=== PATIENT | female | born 1980 | race Two or more races ===

== ENCOUNTER 2020-02-16 10:22 | Inpatient (IN) | payer MEDICAID, OTHER ==
[~2020-02-16] VITALS: Ht 172.7 cm; Wt 144.9 kg
[2020-02-16] VITALS (22 sets, daily range): BP systolic 69–192; BP diastolic 41–120
[2020-02-16] MEDS ORDERED: ONDANSETRON HCL 4 MG/2 ML VIAL ONE (10:33)
[2020-02-16] MEDS ORDERED: MIDAZOLAM HCL 5 MG/ML-1ML VIAL ONE (10:36)
[2020-02-16] MEDS ORDERED: MIDAZOLAM DRIP 50 mg/50mL 50 ML IV ONE ×2 (10:36→10:54)
[2020-02-16] MEDS ORDERED: EPINEPHrine HCL 1 MG/10 ML SYRG ONE ×2 (10:43→10:44)
[2020-02-16] MEDS ORDERED: NOREPINEPHRINE 8 MG/250ML KIT 250 ML IV ONE (10:50)
[2020-02-16] MEDS ORDERED: DEXTROSE 50% SYRINGE 100 ML IV ONE (10:52)
[2020-02-16] MEDS: NOREPINEPHRINE 8 MG/250ML KIT 250 ML IV SCH ×5 (11:25→22:12)
[2020-02-16] MEDS: MIDAZOLAM DRIP 50 mg/50mL 50 ML IV SCH ×2 (11:26→22:21)
[2020-02-16] MEDS ORDERED: DEXTROSE (50%) 50ML SYRG IV ONE ×4 (11:30→17:45)
[2020-02-16 12:00] LABS: INR 2.92 (0.9-1.15)
[2020-02-16 12:05] LABS: Partial Thromboplastin Time 71.1 sec (23.0-31.2)
[2020-02-16 12:11] LABS: Lactic Acid w/Reflex 11.9 mmol/L (0.4-2.0)
[2020-02-16] MEDS ORDERED: SODIUM BICARBONATE 8.4 % INJ 50ML VIAL IV ONE ×5 (12:15→18:15)
[2020-02-16 12:52] LABS: Basophils # (auto) 0 10 ^3/uL (0-0.2); Eosinophils # (auto) 0 10 ^3/uL (0-0.8); Lymphocytes # (auto) 1.5 10 ^3/uL (0.4-5.4); Monocytes # (auto) 0.3 10 ^3/uL (0-1.3); Neutrophils % (auto) 75.5 % (37.0-80.0); White Blood Cell 7.6 10^3/uL (4.4-10.8)
[2020-02-16 12:53] LABS: Basophils % (auto) 0.4 % (0.0-2.0); Eosinophils % (auto) 0.4 % (0.0-7.0); Hematocrit 43.5 % (36.0-46.0); Lymphocytes % (auto) 19.7 % (10.0-50.0); Mean Corpuscular Hemoglobin 31.6 pg (28.0-32.0); Mean Corpuscular Hgb Conc. 29.8 g/dL (32.0-36.0); Neutrophils # (auto) 5.7 10 ^3/uL (1.6-8.6); Nucleated Red Blood Cells % 0.1 %; Platelet Count (auto) 421 10^3/uL (140-450); Red Blood Cells 4.11 10^6/uL (4.0-5.20); Red Cell Distribution Width 15.5 % (11.8-14.3)
[2020-02-16] MEDS ORDERED: cefTRIAXone 1GM/50ML D5W 50 ML IV ONE (13:00)
[2020-02-16] MEDS ORDERED: SODIUM CHLORIDE 0.9% 2,700 ML IV ONE (13:00)
[2020-02-16] MEDS ORDERED: PIPERACILLIN-TAZOB 3.375GM 100 ML IV ONE (13:00)
[2020-02-16 13:05] LABS: Albumin 2.2 g/dL (3.4-5.0); Calcium 9.9 mg/dL (8.5-10.1)
[2020-02-16 13:11] LABS: BUN/Creatinine Ratio 11.5; Bilirubin, Total 0.7 mg/dL (0.2-1.0); Total Protein 6.8 g/dL (6.4-8.2)
[2020-02-16 13:25] LABS: Potassium 7.9 mmol/L (3.5-5.1)
[2020-02-16 14:16] LABS: Basophils # (auto) 0 10 ^3/uL (0-0.2); Eosinophils # (auto) 0 10 ^3/uL (0-0.8); Eosinophils % (auto) 0.4 % (0.0-7.0); Hemoglobin 12.7 g/dL (12.2-16.2); Lymphocytes # (auto) 1.2 10 ^3/uL (0.4-5.4); Nucleated Red Blood Cells % 0.1 %; Red Cell Distribution Width 15.1 % (11.8-14.3)
[2020-02-16 14:18] LABS: Basophils % (auto) 0.3 % (0.0-2.0); Hematocrit 41.2 % (36.0-46.0); Lymphocytes % (auto) 17.3 % (10.0-50.0); Mean Corpuscular Hgb Conc. 30.8 g/dL (32.0-36.0); Monocytes # (auto) 0.4 10 ^3/uL (0-1.3); Monocytes % (auto) 4.9 % (0.0-12.0); Neutrophils # (auto) 5.5 10 ^3/uL (1.6-8.6); Neutrophils % (auto) 77.1 % (37.0-80.0); Platelet Count (auto) 463 10^3/uL (140-450); Red Blood Cells 3.96 10^6/uL (4.0-5.20); White Blood Cell 7.2 10^3/uL (4.4-10.8)
[2020-02-16 14:39] LABS: INR 1.63 (0.9-1.15)
[2020-02-16 14:43] LABS: Albumin 2.3 g/dL (3.4-5.0); Calcium 9.7 mg/dL (8.5-10.1); Potassium 3.2 mmol/L (3.5-5.1)
[2020-02-16 14:47] LABS: BUN/Creatinine Ratio 10.7; Bilirubin, Total 0.7 mg/dL (0.2-1.0); Total Protein 6.5 g/dL (6.4-8.2)
[2020-02-16] MEDS ORDERED: D5W/SOD CHLO 0.9% 1,000 ML IV ONE (15:00)
[2020-02-16] MEDS ORDERED: metroNIDAZOLE 500MG/100ML 100 ML IV ONE ×2 (16:15→19:45)
[2020-02-16] MEDS: PHENYLEPHRINE IV 250 ML IV SCH (17:54)
[2020-02-16] MEDS ORDERED: CALCIUM CHLOR(10%) 100MG/ML 10ML SYRINGE IV ONE (17:58)
[2020-02-16] MEDS ORDERED: ALBUMIN 5% 0 ML IV ONE (18:01)
[2020-02-16] MEDS ORDERED: SODIUM CHLORIDE 0.9% 1,000 ML IV ONE ×2 (18:15→21:45)
[2020-02-16] MEDS ORDERED: fentaNYL CITRATE 100 MCG/2 ML VL IV ONE (18:33)
[2020-02-16] MEDS ORDERED: MIDAZOLAM HCL 1MG/1ML-2 ML VIAL ONE ×2 (18:49→18:55)
[2020-02-16] MEDS ORDERED: D5W/SOD CHL 0.45%/KCL 40MEQ 1,000 ML IV ONE (19:45)
[2020-02-16] MEDS ORDERED: HYDROmorphone HCL 2 MG/ML VL IV ONE (19:45)
[2020-02-16 20:44] LABS: Urine Bacteria NONE SEEN /hpf (None Seen); Urine Blood 3+ /uL (Negative); Urine Hyaline Cast MOD /lpf (0 - 2); Urine Mucus FEW (None Seen); Urine Specific Gravity 1.013 (1.001-1.035); Urine WBC 15 /hpf (0 - 5)
[2020-02-16 20:52] LABS: Alcohol, Urine < 3.0 mg/dL (0-10); Amphetamine Screen, Urine NEGATIVE (NEGATIVE); Barbiturate Scree,Urine NEGATIVE (NEGATIVE); Benzodiazephine Screen, Urine POSITIVE (NEGATIVE); Cannabinoid Screen, Urine NEGATIVE (NEGATIVE); Cocaine Screen, Urine NEGATIVE (NEGATIVE); Opiate Scree,Urine NEGATIVE (NEGATIVE); Phencyclidine Screen, Urine NEGATIVE (NEGATIVE)
[2020-02-16] MEDS: PANTOPRAZOLE 40mg/50ML NS AE 50 ML IV SCH (21:08)
[2020-02-16] MEDS: PIPERACILLIN-TAZOB 3.375GM 100 ML IV SCH (22:19)
[2020-02-16] MEDS ORDERED: ZONI100C43 PO (22:32)
[2020-02-16] MEDS ORDERED: OXYC325T14 PO (22:32)
[2020-02-16] MEDS ORDERED: NAP500T PO (22:32)
[2020-02-16] MEDS ORDERED: HYDR-4188 PO (22:32)
[2020-02-16] MEDS ORDERED: PREG100C PO (22:32)
[2020-02-16] MEDS ORDERED: META-167 PO (22:32)
[2020-02-16] MEDS ORDERED: NITROGLYCERIN 2% OINT 1GM PKG TD ONE ×2 (23:00→23:15)
[2020-02-16 23:35] LABS: Lactic Acid w/Reflex 7.1 mmol/L (0.4-2.0)
[2020-02-17] VITALS (98 sets, daily range): BP systolic 87–158; BP diastolic 24–78
[2020-02-17] MEDS ORDERED: ACCU-CHEK COMFORT CURVE STRIP VI SCH
[2020-02-17] MEDS: DEXTROSE (50%) 50ML SYRG IV PRN ×4 (00:18→14:58)
[2020-02-17 00:57] LABS: Basophils # (auto) 0 10 ^3/uL (0-0.2); Basophils % (auto) 0.3 % (0.0-2.0); Eosinophils # (auto) 0 10 ^3/uL (0-0.8); Eosinophils % (auto) 0.2 % (0.0-7.0); Hematocrit 38.7 % (36.0-46.0); Hemoglobin 12.6 g/dL (12.2-16.2); Lymphocytes # (auto) 0.3 10 ^3/uL (0.4-5.4); Lymphocytes % (auto) 7.6 % (10.0-50.0); Mean Corpuscular Hemoglobin 31.7 pg (28.0-32.0); Mean Corpuscular Hgb Conc. 32.4 g/dL (32.0-36.0); Mean Corpuscular Volume 97.8 fL (80.0-100.0); Monocytes # (auto) 0.2 10 ^3/uL (0-1.3); Monocytes % (auto) 4.6 % (0.0-12.0); Neutrophils # (auto) 3.1 10 ^3/uL (1.6-8.6); Neutrophils % (auto) 87.3 % (37.0-80.0); Nucleated Red Blood Cells % 0.3 %; Platelet Count (auto) 315 10^3/uL (140-450); Red Blood Cells 3.96 10^6/uL (4.0-5.20); Red Cell Distribution Width 14.1 % (11.8-14.3); White Blood Cell 3.6 10^3/uL (4.4-10.8)
[2020-02-17 01:13] LABS: Calcium 7.5 mg/dL (8.5-10.1); INR 1.67 (0.9-1.15); Partial Thromboplastin Time 31.7 sec (23.0-31.2)
[2020-02-17] MEDS: PANTOPRAZOLE 40mg/50ML NS AE 50 ML IV SCH ×5 (01:16→23:34)
[2020-02-17 01:19] LABS: BUN/Creatinine Ratio 10.7
[2020-02-17] MEDS: PHENYLEPHRINE IV 250 ML IV SCH ×3 (01:50→18:30)
[2020-02-17] MEDS: ACCU-CHEK COMFORT CURVE STRIP VI SCH ×11 (02:10→22:00)
[2020-02-17] MEDS: NOREPINEPHRINE 8 MG/250ML KIT 250 ML IV SCH ×3 (03:25→18:44)
[2020-02-17] MEDS: MIDAZOLAM DRIP 50 mg/50mL 50 ML IV SCH ×4 (03:42→20:18)
[2020-02-17] MEDS ORDERED: D5W/SOD CHL 0.45%/KCL 40MEQ 1,000 ML IV SCH (04:00)
[2020-02-17] MEDS: PIPERACILLIN-TAZOB 3.375GM 100 ML IV SCH ×3 (05:54→22:08)
[2020-02-17 07:11] LABS: Albumin 1.8 g/dL (3.4-5.0); Lactic Acid w/Reflex 7.6 mmol/L (0.4-2.0); Magnesium 1.4 mg/dL (1.6-2.6); Potassium 3.3 mmol/L (3.5-5.1)
[2020-02-17 07:13] LABS: Basophils # (auto) 0 10 ^3/uL (0-0.2); Basophils % (auto) 0.2 % (0.0-2.0); Eosinophils # (auto) 0 10 ^3/uL (0-0.8); Eosinophils % (auto) 0.4 % (0.0-7.0); Hematocrit 35.6 % (36.0-46.0); Hemoglobin 11.6 g/dL (12.2-16.2); Lymphocytes # (auto) 0.3 10 ^3/uL (0.4-5.4); Lymphocytes % (auto) 6.5 % (10.0-50.0); Mean Corpuscular Hgb Conc. 32.7 g/dL (32.0-36.0); Mean Corpuscular Volume 97.8 fL (80.0-100.0); Monocytes # (auto) 0.2 10 ^3/uL (0-1.3); Monocytes % (auto) 3.5 % (0.0-12.0); Neutrophils # (auto) 4.5 10 ^3/uL (1.6-8.6); Neutrophils % (auto) 89.4 % (37.0-80.0); Nucleated Red Blood Cells % 0.2 %; Platelet Count (auto) 268 10^3/uL (140-450); Red Blood Cells 3.64 10^6/uL (4.0-5.20); Red Cell Distribution Width 14.1 % (11.8-14.3)
[2020-02-17 07:20] LABS: BUN/Creatinine Ratio 10.2; Phosphorus 1.8 mg/dL (2.5-4.90); Total Protein 5.1 g/dL (6.4-8.2)
[2020-02-17] MEDS ORDERED: CALCIUM CHLOR(10%) 100MG/ML 10ML SYRINGE IV ONE (08:52)
[2020-02-17] MEDS ORDERED: EPINEPHrine HCL 1 MG/10 ML SYRG IV ONE (08:52)
[2020-02-17] MEDS ORDERED: SODIUM BICARBONATE 8.4% INJ 50ML SYRINGE IV ONE (08:52)
[2020-02-17] MEDS ORDERED: ALBUMIN 25% 100 ML IV ONE (12:00)
[2020-02-17] MEDS ORDERED: POTASSIUM CHL 20MEQ/100ML 100 ML IV PRN (12:00)
[2020-02-17] MEDS ORDERED: ALBUMIN 25% 100 ML IV SCH (12:15)
[2020-02-17] MEDS ORDERED: POTASSIUM PHOSPHATE 44 MEQ in D5W 5% 250 ML IV ONE (12:15)
[2020-02-17] MEDS: MAGNESIUM SULFATE 1GM/100ML 100 ML IV SCH ×2 (13:25→14:43)
[2020-02-17] MEDS: POTASSIUM CHL 20MEQ/100ML 100 ML IV SCH ×2 (13:38→15:18)
[2020-02-17] MEDS: SODIUM BICARBONATE 50ML VIAL 100 ML in D5W 5% 1,000 ML IV SCH ×2 (13:49→19:41)
[2020-02-17] MEDS ORDERED: TPN PER PHARMACY 0 ML IV SCH (14:00)
[2020-02-17] MEDS ORDERED: VANCOMYCIN PER PHARMACY 0 MG IV SCH (14:00)
[2020-02-17] MEDS: fentaNYL Drip 2500mCg/250mlNS 250 ML IV SCH (14:52)
[2020-02-17] MEDS ORDERED: FUROSEMIDE 100 MG/10ML VIAL IV ONE (15:45)
[2020-02-17] MEDS ORDERED: SODIUM CHLORIDE 0.9% 2,000 ML IV ONE (16:15)
[2020-02-17] MEDS ORDERED: VANCOMYCIN 1GM/250ML 250 ML IV ONE (18:00)
[2020-02-17] MEDS ORDERED: AMINO ACID INFUSION IN D5W 2,000 ML IV NR (20:00)
[2020-02-17] MEDS: ALBUMIN 25% 100 ML IV SCH (20:31)
[2020-02-17 21:13] LABS: Urine Bacteria FEW /hpf (None Seen); Urine Blood 3+ /uL (Negative); Urine WBC 12 /hpf (0 - 5)
[2020-02-18] VITALS (104 sets, daily range): BP systolic 110–142; BP diastolic 39–94
[2020-02-18] MEDS: NOREPINEPHRINE 8 MG/250ML KIT 250 ML IV SCH ×2 (01:36→19:59)
[2020-02-18] MEDS: MIDAZOLAM DRIP 50 mg/50mL 50 ML IV SCH (01:37)
[2020-02-18] MEDS: ACCU-CHEK COMFORT CURVE STRIP VI SCH ×12 (02:06→22:16)
[2020-02-18] MEDS: PHENYLEPHRINE IV 250 ML IV SCH ×3 (02:50→19:30)
[2020-02-18 02:53] LABS: Protein, Urine 139.5 mg/dL (0.0-11.9)
[2020-02-18] MEDS: SODIUM BICARBONATE 50ML VIAL 100 ML in D5W 5% 1,000 ML IV SCH ×3 (03:29→13:45)
[2020-02-18] MEDS: PANTOPRAZOLE 40mg/50ML NS AE 50 ML IV SCH ×5 (03:40→21:38)
[2020-02-18] MEDS: ALBUMIN 25% 100 ML IV SCH ×2 (04:09→13:13)
[2020-02-18 04:16] LABS: Potassium 4.6 mmol/L (3.5-5.1)
[2020-02-18 04:31] LABS: Albumin 2.2 g/dL (3.4-5.0); BUN/Creatinine Ratio 9.6; Bilirubin, Total 2.9 mg/dL (0.2-1.0); Calcium 6.2 mg/dL (8.5-10.1); Magnesium 1.7 mg/dL (1.6-2.6); Phosphorus 3.8 mg/dL (2.5-4.90); Pre Albumin 8.2 mg/dL (20.0-40.0); Total Protein 4.9 g/dL (6.4-8.2)
[2020-02-18 04:32] LABS: Basophils # (auto) 0 10 ^3/uL (0-0.2); Basophils % (auto) 0.3 % (0.0-2.0); Eosinophils # (auto) 0.1 10 ^3/uL (0-0.8); Eosinophils % (auto) 2.5 % (0.0-7.0); Hematocrit 27.7 % (36.0-46.0); Hemoglobin 9.5 g/dL (12.2-16.2); Lymphocytes # (auto) 0.5 10 ^3/uL (0.4-5.4); Lymphocytes % (auto) 8.1 % (10.0-50.0); Mean Corpuscular Hemoglobin 32.9 pg (28.0-32.0); Mean Corpuscular Hgb Conc. 34.2 g/dL (32.0-36.0); Mean Corpuscular Volume 96.3 fL (80.0-100.0); Monocytes # (auto) 0.1 10 ^3/uL (0-1.3); Monocytes % (auto) 1.6 % (0.0-12.0); Neutrophils # (auto) 5.1 10 ^3/uL (1.6-8.6); Neutrophils % (auto) 87.5 % (37.0-80.0); Nucleated Red Blood Cells % 0.6 %; Platelet Count (auto) 164 10^3/uL (140-450); Red Blood Cells 2.87 10^6/uL (4.0-5.20); Red Cell Distribution Width 14.3 % (11.8-14.3); White Blood Cell 5.8 10^3/uL (4.4-10.8)
[2020-02-18 04:53] LABS: Lactic Acid w/Reflex 4.2 mmol/L (0.4-2.0)
[2020-02-18] MEDS: PIPERACILLIN-TAZOB 3.375GM 100 ML IV SCH ×3 (05:30→22:19)
[2020-02-18] MEDS ORDERED: CALCIUM GLUC 4.65meq/50ml D5AE 50 ML IV ONE (10:00)
[2020-02-18] MEDS ORDERED: VANCOMYCIN 500 MG in D5W 5% 100 ML IV ONE (11:00)
[2020-02-18] MEDS: FUROSEMIDE 100 MG/10ML VIAL IV SCH ×3 (14:00→22:19)
[2020-02-18] MEDS: fentaNYL Drip 2500mCg/250mlNS 250 ML IV SCH (14:57)
[2020-02-18 16:56] LABS: Hepatitis A Ab IgM Negative; Hepatitis B Core IgM Negative; Hepatitis B Surface Antigen Negative (Negative); Hepatitis C Antibody Negative (Negative)
[2020-02-18] MEDS ORDERED: TPN PER PHARMACY IV NR ×6 (20:00)
[2020-02-18] MEDS: SODIUM CHLOR 0.9% PF (SALINE LOCK) 10ML VIAL/SYR IV SCH (22:20)
[2020-02-19] VITALS (108 sets, daily range): BP systolic 91–129; BP diastolic 35–69
[2020-02-19] MEDS: ACCU-CHEK COMFORT CURVE STRIP VI SCH ×10 (00:04→19:44)
[2020-02-19] MEDS: PANTOPRAZOLE 40mg/50ML NS AE 50 ML IV SCH ×5 (02:47→21:54)
[2020-02-19] MEDS: PHENYLEPHRINE IV 250 ML IV SCH ×3 (03:35→19:44)
[2020-02-19 04:06] LABS: Hematocrit 26.1 % (36.0-46.0); Hemoglobin 8.9 g/dL (12.2-16.2); Mean Corpuscular Hemoglobin 32.6 pg (28.0-32.0); Mean Corpuscular Hgb Conc. 33.9 g/dL (32.0-36.0); Mean Corpuscular Volume 96.2 fL (80.0-100.0); Platelet Count (auto) 96 10^3/uL (140-450); Red Blood Cells 2.72 10^6/uL (4.0-5.20); Red Cell Distribution Width 14.9 % (11.8-14.3)
[2020-02-19 04:08] LABS: Potassium 4.3 mmol/L (3.5-5.1)
[2020-02-19 04:15] LABS: Albumin 2.4 g/dL (3.4-5.0); BUN/Creatinine Ratio 9.2; Magnesium 1.4 mg/dL (1.6-2.6); Phosphorus 2.5 mg/dL (2.5-4.90); Total Protein 5.1 g/dL (6.4-8.2)
[2020-02-19 04:19] LABS: Calcium 5.9 mg/dL (8.5-10.1)
[2020-02-19 04:24] LABS: Basophils % (manual) 0 (0.0-2.0); Blast Cells 0; Metamyelocytes % 0; Promyelocytes % 0; Reactive Lymphocytes 0
[2020-02-19] MEDS: PIPERACILLIN-TAZOB 3.375GM 100 ML IV SCH ×3 (05:35→21:51)
[2020-02-19] MEDS: FUROSEMIDE 100 MG/10ML VIAL IV SCH ×3 (05:35→21:51)
[2020-02-19 05:38] LABS: Band Neutrophils % (manual) 14; Eosinophils % (manual) 7 (0-7); Lymphocytes % (manual) 15 (10.0-50.0); Monocytes % (manual) 11 (0-12); Myelocytes % 1
[2020-02-19] MEDS: SODIUM BICARBONATE 50ML VIAL 100 ML in D5W 5% 1,000 ML IV SCH (10:04)
[2020-02-19] MEDS: SODIUM CHLOR 0.9% PF (SALINE LOCK) 10ML VIAL/SYR IV SCH ×2 (10:04→21:53)
[2020-02-19] MEDS: MAGNESIUM SULFATE 1GM/100ML 100 ML IV SCH ×2 (10:06→11:42)
[2020-02-19] MEDS ORDERED: VANCOMYCIN 500 MG in D5W 5% 100 ML IV ONE (11:00)
[2020-02-19] MEDS: fentaNYL Drip 2500mCg/250mlNS 250 ML IV SCH (14:00)
[2020-02-19] MEDS: CALCIUM GLUC 4.65meq/50ml D5AE 50 ML IV SCH ×2 (14:54→15:00)
[2020-02-19] MEDS: MIDAZOLAM DRIP 50 mg/50mL 50 ML IV SCH (19:23)
[2020-02-19 19:55] LABS: Anion Gap 14 (5-15); BUN/Creatinine Ratio 8.6; Blood Urea Nitrogen 38 mg/dL (7-18); Calcium 6.4 mg/dL (8.5-10.1); Carbon Dioxide 20 mmol/L (21-32); Chloride 100 mmol/L (98-107); GFR African American 14 mL/min; GFR Non-African American 12 mL/min; Glucose 102 mg/dL (74-106); Potassium 3.7 mmol/L (3.5-5.1); Sodium 134 mmol/L (136-145)
[2020-02-19] MEDS: NOREPINEPHRINE 8 MG/250ML KIT 250 ML IV SCH (19:56)
[2020-02-19] MEDS ORDERED: TPN PER PHARMACY IV NR ×7 (20:00)
[2020-02-19] MEDS ORDERED: CALCIUM GLUC 4.65meq/50ml D5AE 50 ML IV ONE (21:30)
[2020-02-19 23:03] LABS: Hematocrit 25.6 % (36.0-46.0); Hemoglobin 8.6 g/dL (12.2-16.2); Mean Corpuscular Hemoglobin 32.1 pg (28.0-32.0); Mean Corpuscular Hgb Conc. 33.7 g/dL (32.0-36.0); Mean Corpuscular Volume 95.1 fL (80.0-100.0); Platelet Count (auto) 82 10^3/uL (140-450); Red Blood Cells 2.69 10^6/uL (4.0-5.20); Red Cell Distribution Width 14.8 % (11.8-14.3); White Blood Cell 13.7 10^3/uL (4.4-10.8)
[2020-02-19 23:06] LABS: Basophils % (manual) 0 (0.0-2.0); Blast Cells 0; Myelocytes % 0; Promyelocytes % 0; Reactive Lymphocytes 0
[2020-02-19 23:21] LABS: Albumin 1.8 g/dL (3.4-5.0); Potassium 3.7 mmol/L (3.5-5.1)
[2020-02-19 23:23] LABS: BUN/Creatinine Ratio 8.7
[2020-02-19 23:25] LABS: Bilirubin, Total 3.4 mg/dL (0.2-1.0)
[2020-02-19 23:29] LABS: Band Neutrophils % (manual) 24; Eosinophils % (manual) 4 (0-7); Lymphocytes % (manual) 4 (10.0-50.0); Metamyelocytes % 3; Monocytes % (manual) 17 (0-12)
[2020-02-20] VITALS (102 sets, daily range): BP systolic 107–126; BP diastolic 47–63
[2020-02-20] MEDS: PANTOPRAZOLE 40mg/50ML NS AE 50 ML IV SCH ×5 (03:18→23:14)
[2020-02-20] MEDS: SODIUM BICARBONATE 50ML VIAL 100 ML in D5W 5% 1,000 ML IV SCH (03:19)
[2020-02-20 03:55] LABS: Albumin 1.9 g/dL (3.4-5.0); Calcium 6.6 mg/dL (8.5-10.1); Potassium 3.6 mmol/L (3.5-5.1)
[2020-02-20 03:58] LABS: Bilirubin, Total 3.7 mg/dL (0.2-1.0); Phosphorus 1.4 mg/dL (2.5-4.90); Total Protein 5.2 g/dL (6.4-8.2)
[2020-02-20] MEDS: PHENYLEPHRINE IV 250 ML IV SCH ×3 (04:43→19:17)
[2020-02-20] MEDS: FUROSEMIDE 100 MG/10ML VIAL IV SCH ×2 (05:23→19:29)
[2020-02-20] MEDS: PIPERACILLIN-TAZOB 3.375GM 100 ML IV SCH ×2 (05:24→13:38)
[2020-02-20] MEDS: ACCU-CHEK COMFORT CURVE STRIP VI SCH ×5 (05:24→23:12)
[2020-02-20] MEDS ORDERED: POTASSIUM PHOSPHATE 44 MEQ in D5W 5% 250 ML IV ONE (08:30)
[2020-02-20] MEDS ORDERED: CALCIUM GLUC 4.65meq/50ml D5AE 50 ML IV ONE (08:30)
[2020-02-20] MEDS: NOREPINEPHRINE 8 MG/250ML KIT 250 ML IV SCH ×2 (09:35→21:32)
[2020-02-20] MEDS: SODIUM CHLOR 0.9% PF (SALINE LOCK) 10ML VIAL/SYR IV SCH ×2 (09:43→21:32)
[2020-02-20] MEDS: InsuLIN REG 1unit/0.01ml Soln (100units/ml) SC SCH ×3 (12:00→23:12)
[2020-02-20] MEDS ORDERED: DEXTROSE (50%) 50ML SYRG IV SCH (12:00)
[2020-02-20] MEDS ORDERED: FUROSEMIDE 100 MG/10ML VIAL IV SCH (13:45)
[2020-02-20] MEDS ORDERED: ALBUMIN 25% 100 ML IV ONE (13:45)
[2020-02-20] MEDS: fentaNYL Drip 2500mCg/250mlNS 250 ML IV SCH (14:05)
[2020-02-20] MEDS: D5W/SOD CHLO 0.9% 1,000 ML IV SCH (17:50)
[2020-02-20] MEDS: MIDAZOLAM DRIP 50 mg/50mL 50 ML IV SCH (19:17)
[2020-02-20] MEDS ORDERED: TPN PER PHARMACY IV NR ×8 (20:00)
[2020-02-20] MEDS ORDERED: cefTRIAXone 1GM/50ML D5W 50 ML IV ONE (20:15)
[2020-02-20 21:40] LABS: Urine Bacteria FEW /hpf (None Seen); Urine Blood 2+ /uL (Negative); Urine Specific Gravity 1.008 (1.001-1.035); Urine WBC 2 /hpf (0 - 5)
[2020-02-20 22:20] LABS: Hemoglobin 8.6 g/dL (12.2-16.2)
[2020-02-20 22:24] LABS: Hematocrit 26.1 % (36.0-46.0); Mean Corpuscular Hemoglobin 31.7 pg (28.0-32.0); Mean Corpuscular Volume 96.3 fL (80.0-100.0); Platelet Count (auto) 47 10^3/uL (140-450); Red Blood Cells 2.71 10^6/uL (4.0-5.20); Red Cell Distribution Width 15.1 % (11.8-14.3); White Blood Cell 22.8 10^3/uL (4.4-10.8)
[2020-02-20 22:27] LABS: Basophils % (manual) 0 (0.0-2.0); Blast Cells 0; Promyelocytes % 0; Reactive Lymphocytes 0
[2020-02-20 22:44] LABS: Band Neutrophils % (manual) 6; Lymphocytes % (manual) 7 (10.0-50.0); Monocytes % (manual) 5 (0-12)
[2020-02-20 22:45] LABS: Eosinophils % (manual) 3 (0-7); Metamyelocytes % 1; Myelocytes % 1
[2020-02-21] VITALS (107 sets, daily range): BP systolic 104–129; BP diastolic 41–65
[2020-02-21] MEDS: FUROSEMIDE 100 MG/10ML VIAL IV SCH ×3 (02:17→14:38)
[2020-02-21] MEDS: PANTOPRAZOLE 40mg/50ML NS AE 50 ML IV SCH ×4 (03:43→19:58)
[2020-02-21] MEDS: D5W/SOD CHLO 0.9% 1,000 ML IV SCH ×2 (03:53→19:56)
[2020-02-21 04:08] LABS: Albumin 1.8 g/dL (3.4-5.0); Magnesium 2.2 mg/dL (1.6-2.6); Potassium 4.3 mmol/L (3.5-5.1)
[2020-02-21 04:12] LABS: BUN/Creatinine Ratio 9.3; Bilirubin, Total 4.1 mg/dL (0.2-1.0); Phosphorus 3.6 mg/dL (2.5-4.90); Total Protein 5.2 g/dL (6.4-8.2)
[2020-02-21] MEDS: PHENYLEPHRINE IV 250 ML IV SCH ×3 (05:00→22:30)
[2020-02-21] MEDS: ACCU-CHEK COMFORT CURVE STRIP VI SCH ×4 (05:04→23:40)
[2020-02-21] MEDS: InsuLIN REG 1unit/0.01ml Soln (100units/ml) SC SCH ×4 (05:04→23:40)
[2020-02-21] MEDS ORDERED: SODIUM BICARBONATE 8.4 % INJ 50ML VIAL IV ONE (08:00)
[2020-02-21] MEDS: SODIUM CHLOR 0.9% PF (SALINE LOCK) 10ML VIAL/SYR IV SCH ×2 (08:30→21:50)
[2020-02-21 09:46] LABS: Urine Bacteria FEW /hpf (None Seen); Urine Blood 2+ /uL (Negative); Urine Specific Gravity 1.011 (1.001-1.035); Urine WBC 12 /hpf (0 - 5)
[2020-02-21] MEDS: NOREPINEPHRINE 8 MG/250ML KIT 250 ML IV SCH (12:15)
[2020-02-21] MEDS ORDERED: CEFEPIME 0.5 GM in SODIUM CHL 0.9% 50 ML IV SCH ×2 (13:15→13:25)
[2020-02-21 13:58] LABS: Red Cell Distribution Width 15.3 % (11.8-14.3)
[2020-02-21 13:59] LABS: Hematocrit 25.2 % (36.0-46.0); Hemoglobin 8.2 g/dL (12.2-16.2); Mean Corpuscular Hemoglobin 30.7 pg (28.0-32.0); Mean Corpuscular Hgb Conc. 32.3 g/dL (32.0-36.0); Platelet Count (auto) 44 10^3/uL (140-450); Red Blood Cells 2.66 10^6/uL (4.0-5.20); White Blood Cell 27.6 10^3/uL (4.4-10.8)
[2020-02-21] MEDS: fentaNYL Drip 2500mCg/250mlNS 250 ML IV SCH ×2 (14:00→22:41)
[2020-02-21] MEDS ORDERED: CEFEPIME 1 GM in SODIUM CHL 0.9% 50 ML IV SCH ×2 (14:00→14:01)
[2020-02-21 14:14] LABS: Albumin 1.7 g/dL (3.4-5.0); Calcium 7.1 mg/dL (8.5-10.1); Potassium 3.9 mmol/L (3.5-5.1)
[2020-02-21 14:17] LABS: BUN/Creatinine Ratio 9.1; Bilirubin, Total 3.8 mg/dL (0.2-1.0)
[2020-02-21 14:31] LABS: Basophils % (manual) 0 (0.0-2.0); Blast Cells 0; Eosinophils % (manual) 0 (0-7); Promyelocytes % 0; Reactive Lymphocytes 0
[2020-02-21] MEDS: CEFEPIME 1 GM in SODIUM CHL 0.9% 50 ML IV SCH (14:38)
[2020-02-21 17:32] LABS: Band Neutrophils % (manual) 6; Lymphocytes % (manual) 6 (10.0-50.0); Metamyelocytes % 1; Monocytes % (manual) 5 (0-12); Myelocytes % 1
[2020-02-21] MEDS: ALBUTEROL SULF 2.5 MG/0.5ML(0.5%) NEB SOLN NEB PRN ×2 (18:56→22:39)
[2020-02-21] MEDS: FUROSEMIDE INJECTION 100 MG in SODIUM CHL 0.9% 100 ML IV SCH ×3 (19:35→22:39)
[2020-02-21] MEDS: MIDAZOLAM DRIP 50 mg/50mL 50 ML IV SCH (19:45)
[2020-02-21] MEDS ORDERED: TPN PER PHARMACY IV NR ×8 (20:00)
[2020-02-21] MEDS ORDERED: cefTRIAXone 1GM/50ML D5W 50 ML IV SCH (21:00)
[2020-02-21] MEDS: metroNIDAZOLE 500MG/100ML 100 ML IV SCH (21:50)
[2020-02-22] VITALS (99 sets, daily range): BP systolic 99–155; BP diastolic 38–70
[2020-02-22] MEDS: NOREPINEPHRINE 8 MG/250ML KIT 250 ML IV SCH ×2 (01:35→14:55)
[2020-02-22] MEDS: PANTOPRAZOLE 40mg/50ML NS AE 50 ML IV SCH ×5 (01:42→21:29)
[2020-02-22] MEDS: FUROSEMIDE INJECTION 100 MG in SODIUM CHL 0.9% 100 ML IV SCH ×2 (02:50→05:51)
[2020-02-22] MEDS: metroNIDAZOLE 500MG/100ML 100 ML IV SCH ×3 (05:51→23:03)
[2020-02-22] MEDS: InsuLIN REG 1unit/0.01ml Soln (100units/ml) SC SCH ×3 (06:00→18:00)
[2020-02-22] MEDS: PHENYLEPHRINE IV 250 ML IV SCH ×3 (06:04→23:28)
[2020-02-22] MEDS: ACCU-CHEK COMFORT CURVE STRIP VI SCH ×3 (06:04→18:48)
[2020-02-22 06:21] LABS: Mean Corpuscular Hgb Conc. 32.3 g/dL (32.0-36.0)
[2020-02-22 06:25] LABS: Hematocrit 24.3 % (36.0-46.0); Hemoglobin 7.8 g/dL (12.2-16.2); Mean Corpuscular Volume 96.1 fL (80.0-100.0); Platelet Count (auto) 51 10^3/uL (140-450); Red Blood Cells 2.52 10^6/uL (4.0-5.20); Red Cell Distribution Width 15.8 % (11.8-14.3)
[2020-02-22 06:37] LABS: Potassium 4.1 mmol/L (3.5-5.1)
[2020-02-22 06:56] LABS: Albumin 1.6 g/dL (3.4-5.0); BUN/Creatinine Ratio 9.4; Calcium 7.4 mg/dL (8.5-10.1); Magnesium 2.5 mg/dL (1.6-2.6); Phosphorus 4.5 mg/dL (2.5-4.90)
[2020-02-22 06:57] LABS: Basophils % (manual) 0 (0.0-2.0); Blast Cells 0; Eosinophils % (manual) 0 (0-7); Monocytes % (manual) 0 (0-12); Promyelocytes % 0; Reactive Lymphocytes 0
[2020-02-22] MEDS ORDERED: BUMETANIDE 2.5mg/10ml (0.25 mg/ml) INJ IV ONE (08:30)
[2020-02-22 08:46] LABS: Band Neutrophils % (manual) 31; Lymphocytes % (manual) 3 (10.0-50.0); Metamyelocytes % 3; Myelocytes % 1
[2020-02-22] MEDS: SODIUM CHLOR 0.9% PF (SALINE LOCK) 10ML VIAL/SYR IV SCH ×2 (10:00→21:29)
[2020-02-22] MEDS ORDERED: VANCOMYCIN 500 MG in D5W 5% 100 ML IV ONE (11:00)
[2020-02-22] MEDS: CEFEPIME 1 GM in SODIUM CHL 0.9% 50 ML IV SCH (13:09)
[2020-02-22] MEDS: MIDAZOLAM DRIP 50 mg/50mL 50 ML IV SCH (19:45)
[2020-02-22] MEDS ORDERED: TPN PER PHARMACY IV NR ×7 (20:00)
[2020-02-22] MEDS ORDERED: CEFEPIME 1 GM in NS 0.9% 50 ML IV ONE (20:00)
[2020-02-22] MEDS: ALBUTEROL SULF 2.5 MG/0.5ML(0.5%) NEB SOLN NEB PRN (20:33)
[2020-02-22] MEDS: BUMETANIDE INJECTION 25 MG in GIVE UN-DILUTED 0 ML IV SCH (20:59)
[2020-02-23] VITALS (99 sets, daily range): BP systolic 120–151; BP diastolic 54–76
[2020-02-23] MEDS: ALBUTEROL SULF 2.5 MG/0.5ML(0.5%) NEB SOLN NEB PRN ×2 (00:25→05:33)
[2020-02-23] MEDS: ACCU-CHEK COMFORT CURVE STRIP VI SCH ×5 (00:27→23:40)
[2020-02-23] MEDS: PANTOPRAZOLE 40mg/50ML NS AE 50 ML IV SCH ×5 (00:49→22:44)
[2020-02-23] MEDS: NOREPINEPHRINE 8 MG/250ML KIT 250 ML IV SCH ×2 (04:15→17:35)
[2020-02-23] MEDS: InsuLIN REG 1unit/0.01ml Soln (100units/ml) SC SCH ×5 (06:00→23:40)
[2020-02-23] MEDS: metroNIDAZOLE 500MG/100ML 100 ML IV SCH ×3 (06:00→21:50)
[2020-02-23 06:17] LABS: Hematocrit 23.6 % (36.0-46.0); Hemoglobin 7.8 g/dL (12.2-16.2); Mean Corpuscular Hemoglobin 31.3 pg (28.0-32.0); Mean Corpuscular Hgb Conc. 33.2 g/dL (32.0-36.0); Mean Corpuscular Volume 94.3 fL (80.0-100.0); Platelet Count (auto) 83 10^3/uL (140-450); Red Cell Distribution Width 15.4 % (11.8-14.3); White Blood Cell 27.7 10^3/uL (4.4-10.8)
[2020-02-23 06:22] LABS: Basophils % (manual) 0 (0.0-2.0); Blast Cells 0; Promyelocytes % 0; Reactive Lymphocytes 0
[2020-02-23 06:32] LABS: Albumin 1.4 g/dL (3.4-5.0); BUN/Creatinine Ratio 10.3; Calcium 8.3 mg/dL (8.5-10.1); Magnesium 2.2 mg/dL (1.6-2.6)
[2020-02-23 06:35] LABS: Bilirubin, Total 2.4 mg/dL (0.2-1.0); Phosphorus 3.8 mg/dL (2.5-4.90); Total Protein 5.5 g/dL (6.4-8.2)
[2020-02-23 06:58] LABS: Band Neutrophils % (manual) 2; Eosinophils % (manual) 1 (0-7); Lymphocytes % (manual) 5 (10.0-50.0); Metamyelocytes % 1; Monocytes % (manual) 4 (0-12); Myelocytes % 3
[2020-02-23] MEDS: PHENYLEPHRINE IV 250 ML IV SCH ×3 (07:19→23:24)
[2020-02-23] MEDS: SODIUM CHLOR 0.9% PF (SALINE LOCK) 10ML VIAL/SYR IV SCH ×2 (10:00→21:49)
[2020-02-23] MEDS: CEFEPIME 2 GM in SODIUM CHL 0.9% 50 ML IV SCH (11:57)
[2020-02-23] MEDS: fentaNYL Drip 2500mCg/250mlNS 250 ML IV SCH (14:00)
[2020-02-23] MEDS ORDERED: VANCOMYCIN 500 MG in D5W 5% 100 ML IV ONE (15:00)
[2020-02-23] MEDS: BUMETANIDE INJECTION 25 MG in GIVE UN-DILUTED 0 ML IV SCH (15:16)
[2020-02-23 19:05] LABS: BUN/Creatinine Ratio 9.6
[2020-02-23] MEDS: MIDAZOLAM DRIP 50 mg/50mL 50 ML IV SCH (19:21)
[2020-02-23 19:35] LABS: Calcium 8.3 mg/dL (8.5-10.1)
[2020-02-23] MEDS ORDERED: TPN*HIGH CONC* PER PHARMACY IV NR ×8 (20:00)
[2020-02-23] MEDS ORDERED: TPN PER PHARMACY IV NR ×7 (20:00)
[2020-02-24] VITALS (104 sets, daily range): BP systolic 113–160; BP diastolic 41–78
[2020-02-24] MEDS: PANTOPRAZOLE 40mg/50ML NS AE 50 ML IV SCH ×5 (03:51→20:10)
[2020-02-24 04:58] LABS: Hemoglobin 7.8 g/dL (12.2-16.2)
[2020-02-24 05:00] LABS: Hematocrit 23.8 % (36.0-46.0); Mean Corpuscular Hemoglobin 30.9 pg (28.0-32.0); Mean Corpuscular Hgb Conc. 32.9 g/dL (32.0-36.0); Mean Corpuscular Volume 93.7 fL (80.0-100.0); Platelet Count (auto) 114 10^3/uL (140-450); Red Blood Cells 2.54 10^6/uL (4.0-5.20); White Blood Cell 25.6 10^3/uL (4.4-10.8)
[2020-02-24 05:04] LABS: Basophils % (manual) 0 (0.0-2.0); Blast Cells 0; Eosinophils % (manual) 0 (0-7); Promyelocytes % 0; Reactive Lymphocytes 0
[2020-02-24 05:17] LABS: Albumin 1.6 g/dL (3.4-5.0); Calcium 8.3 mg/dL (8.5-10.1); Magnesium 2.8 mg/dL (1.6-2.6); Potassium 4.1 mmol/L (3.5-5.1)
[2020-02-24 05:26] LABS: BUN/Creatinine Ratio 11.9; Bilirubin, Total 1.9 mg/dL (0.2-1.0); Phosphorus 4.5 mg/dL (2.5-4.90); Total Protein 5.7 g/dL (6.4-8.2)
[2020-02-24] MEDS: NOREPINEPHRINE 8 MG/250ML KIT 250 ML IV SCH ×2 (05:41→20:01)
[2020-02-24 05:42] LABS: Band Neutrophils % (manual) 33; Lymphocytes % (manual) 9 (10.0-50.0); Monocytes % (manual) 3 (0-12)
[2020-02-24 05:43] LABS: Metamyelocytes % 4; Myelocytes % 3
[2020-02-24] MEDS: ACCU-CHEK COMFORT CURVE STRIP VI SCH ×3 (05:49→17:43)
[2020-02-24] MEDS: InsuLIN REG 1unit/0.01ml Soln (100units/ml) SC SCH ×3 (05:49→17:43)
[2020-02-24] MEDS: metroNIDAZOLE 500MG/100ML 100 ML IV SCH ×3 (05:49→22:12)
[2020-02-24] MEDS: PHENYLEPHRINE IV 250 ML IV SCH ×2 (08:50→17:10)
[2020-02-24] MEDS: SODIUM CHLOR 0.9% PF (SALINE LOCK) 10ML VIAL/SYR IV SCH ×2 (09:58→22:02)
[2020-02-24] MEDS: BUMETANIDE INJECTION 25 MG in GIVE UN-DILUTED 0 ML IV SCH ×2 (10:11→18:00)
[2020-02-24] MEDS: CEFEPIME 2 GM in SODIUM CHL 0.9% 50 ML IV SCH (13:49)
[2020-02-24] MEDS: fentaNYL Drip 2500mCg/250mlNS 250 ML IV SCH (14:00)
[2020-02-24] MEDS: MIDAZOLAM DRIP 50 mg/50mL 50 ML IV SCH (19:45)
[2020-02-24] MEDS ORDERED: TPN*HIGH CONC* PER PHARMACY IV NR ×8 (20:00)
[2020-02-25] VITALS (104 sets, daily range): BP systolic 117–163; BP diastolic 31–67
[2020-02-25] MEDS: PHENYLEPHRINE IV 250 ML IV SCH ×3 (01:30→18:10)
[2020-02-25] MEDS: PANTOPRAZOLE 40mg/50ML NS AE 50 ML IV SCH ×4 (01:38→21:14)
[2020-02-25 04:14] LABS: Hemoglobin 7.7 g/dL (12.2-16.2)
[2020-02-25 04:17] LABS: Hematocrit 23.5 % (36.0-46.0); Mean Corpuscular Hemoglobin 30.7 pg (28.0-32.0); Mean Corpuscular Hgb Conc. 32.6 g/dL (32.0-36.0); Mean Corpuscular Volume 94.4 fL (80.0-100.0); Platelet Count (auto) 168 10^3/uL (140-450); Red Cell Distribution Width 15.3 % (11.8-14.3); White Blood Cell 24.6 10^3/uL (4.4-10.8)
[2020-02-25] MEDS: ALBUTEROL SULF 2.5 MG/0.5ML(0.5%) NEB SOLN NEB PRN (04:27)
[2020-02-25 04:43] LABS: Albumin 1.5 g/dL (3.4-5.0); Calcium 8.2 mg/dL (8.5-10.1); Magnesium 2.7 mg/dL (1.6-2.6); Potassium 3.9 mmol/L (3.5-5.1)
[2020-02-25 04:49] LABS: BUN/Creatinine Ratio 13.6; Bilirubin, Total 1.5 mg/dL (0.2-1.0); Phosphorus 4.9 mg/dL (2.5-4.90); Pre Albumin 9.2 mg/dL (20.0-40.0)
[2020-02-25 04:54] LABS: Basophils % (manual) 0 (0.0-2.0); Blast Cells 0; Promyelocytes % 0; Reactive Lymphocytes 0
[2020-02-25 05:28] LABS: Band Neutrophils % (manual) 14; Eosinophils % (manual) 2 (0-7); Lymphocytes % (manual) 9 (10.0-50.0); Monocytes % (manual) 4 (0-12)
[2020-02-25 05:29] LABS: Metamyelocytes % 2; Myelocytes % 1
[2020-02-25] MEDS: InsuLIN REG 1unit/0.01ml Soln (100units/ml) SC SCH ×5 (06:00→23:48)
[2020-02-25] MEDS: ACCU-CHEK COMFORT CURVE STRIP VI SCH ×5 (06:04→23:48)
[2020-02-25] MEDS: metroNIDAZOLE 500MG/100ML 100 ML IV SCH ×3 (06:04→22:04)
[2020-02-25] MEDS: NOREPINEPHRINE 8 MG/250ML KIT 250 ML IV SCH ×2 (09:35→22:01)
[2020-02-25] MEDS: SODIUM CHLOR 0.9% PF (SALINE LOCK) 10ML VIAL/SYR IV SCH ×2 (10:30→22:01)
[2020-02-25] MEDS: CEFEPIME 2 GM in SODIUM CHL 0.9% 50 ML IV SCH (12:13)
[2020-02-25] MEDS: fentaNYL Drip 2500mCg/250mlNS 250 ML IV SCH (14:00)
[2020-02-25] MEDS: MIDAZOLAM DRIP 50 mg/50mL 50 ML IV SCH (19:45)
[2020-02-25] MEDS ORDERED: TPN*HIGH CONC* PER PHARMACY IV NR ×7 (20:00)
[2020-02-26] VITALS (105 sets, daily range): BP systolic 120–157; BP diastolic 39–71
[2020-02-26] MEDS: PANTOPRAZOLE 40mg/50ML NS AE 50 ML IV SCH ×5 (02:00→21:29)
[2020-02-26] MEDS: PHENYLEPHRINE IV 250 ML IV SCH ×3 (02:00→18:22)
[2020-02-26 03:36] LABS: Hemoglobin 7.4 g/dL (12.2-16.2)
[2020-02-26 03:51] LABS: Albumin 1.4 g/dL (3.4-5.0); Calcium 8.3 mg/dL (8.5-10.1); Magnesium 2.7 mg/dL (1.6-2.6); Potassium 3.8 mmol/L (3.5-5.1)
[2020-02-26 03:54] LABS: BUN/Creatinine Ratio 14.5; Bilirubin, Total 1.3 mg/dL (0.2-1.0); Phosphorus 4.7 mg/dL (2.5-4.90); Total Protein 6.3 g/dL (6.4-8.2)
[2020-02-26 03:55] LABS: Hematocrit 22.3 % (36.0-46.0); Mean Corpuscular Volume 93.8 fL (80.0-100.0); Platelet Count (auto) 245 10^3/uL (140-450); Red Blood Cells 2.37 10^6/uL (4.0-5.20); White Blood Cell 25.8 10^3/uL (4.4-10.8)
[2020-02-26 03:56] LABS: Basophils % (manual) 0 (0.0-2.0); Blast Cells 0; Eosinophils % (manual) 0 (0-7); Myelocytes % 0; Promyelocytes % 0; Reactive Lymphocytes 0
[2020-02-26 04:42] LABS: Band Neutrophils % (manual) 17; Lymphocytes % (manual) 12 (10.0-50.0); Metamyelocytes % 2; Monocytes % (manual) 7 (0-12)
[2020-02-26] MEDS: InsuLIN REG 1unit/0.01ml Soln (100units/ml) SC SCH ×3 (05:03→17:53)
[2020-02-26] MEDS: ACCU-CHEK COMFORT CURVE STRIP VI SCH ×4 (05:04→23:52)
[2020-02-26] MEDS: metroNIDAZOLE 500MG/100ML 100 ML IV SCH ×3 (05:10→21:29)
[2020-02-26] MEDS ORDERED: SODIUM CHL 0.9% 1000 ML BAG XX ONE (10:00)
[2020-02-26] MEDS ORDERED: ALBUMIN 25% 100 ML IV PRN (10:00)
[2020-02-26] MEDS: SODIUM CHLOR 0.9% PF (SALINE LOCK) 10ML VIAL/SYR IV SCH ×2 (10:00→21:29)
[2020-02-26] MEDS: BUMETANIDE INJECTION 25 MG in GIVE UN-DILUTED 0 ML IV SCH (10:15)
[2020-02-26] MEDS: NOREPINEPHRINE 8 MG/250ML KIT 250 ML IV SCH (12:15)
[2020-02-26] MEDS ORDERED: VANCOMYCIN 500 MG in D5W 5% 100 ML IV ONE (13:00)
[2020-02-26] MEDS: fentaNYL Drip 2500mCg/250mlNS 250 ML IV SCH (14:00)
[2020-02-26] MEDS: CEFEPIME 2 GM in SODIUM CHL 0.9% 50 ML IV SCH (17:43)
[2020-02-26] MEDS: MIDAZOLAM DRIP 50 mg/50mL 50 ML IV SCH (18:23)
[2020-02-26] MEDS ORDERED: TPN*HIGH CONC* PER PHARMACY IV NR ×23 (20:00)
[2020-02-26] MEDS ORDERED: EPOETIN ALFA 10,000 UNIT/1 ML VIAL SC ONE (21:00)
[2020-02-27] VITALS (77 sets, daily range): BP systolic 130–164; BP diastolic 46–78
[2020-02-27] MEDS: NOREPINEPHRINE 8 MG/250ML KIT 250 ML IV SCH ×2 (01:34→14:55)
[2020-02-27] MEDS: PANTOPRAZOLE 40mg/50ML NS AE 50 ML IV SCH ×5 (02:45→21:59)
[2020-02-27] MEDS: PHENYLEPHRINE IV 250 ML IV SCH ×3 (03:30→20:10)
[2020-02-27 04:02] LABS: Hematocrit 22.4 % (36.0-46.0); Hemoglobin 7.4 g/dL (12.2-16.2); Mean Corpuscular Hgb Conc. 32.8 g/dL (32.0-36.0); Mean Corpuscular Volume 94.4 fL (80.0-100.0); Platelet Count (auto) 288 10^3/uL (140-450); Red Blood Cells 2.37 10^6/uL (4.0-5.20); Red Cell Distribution Width 15.1 % (11.8-14.3); White Blood Cell 23.8 10^3/uL (4.4-10.8)
[2020-02-27 04:07] LABS: Basophils % (manual) 0 (0.0-2.0); Blast Cells 0; Myelocytes % 0; Promyelocytes % 0; Reactive Lymphocytes 0
[2020-02-27 04:09] LABS: INR 1.24 (0.9-1.15); Partial Thromboplastin Time 26.8 sec (23.0-31.2)
[2020-02-27 04:11] LABS: Calcium 8.6 mg/dL (8.5-10.1); Potassium 3.9 mmol/L (3.5-5.1)
[2020-02-27 04:16] LABS: Albumin 1.5 g/dL (3.4-5.0); BUN/Creatinine Ratio 16.3; Bilirubin, Total 1.1 mg/dL (0.2-1.0); Magnesium 2.6 mg/dL (1.6-2.6); Phosphorus 5.2 mg/dL (2.5-4.90); Total Protein 6.7 g/dL (6.4-8.2)
[2020-02-27 04:36] LABS: Band Neutrophils % (manual) 17; Eosinophils % (manual) 2 (0-7); Lymphocytes % (manual) 12 (10.0-50.0); Metamyelocytes % 1; Monocytes % (manual) 4 (0-12)
[2020-02-27] MEDS: metroNIDAZOLE 500MG/100ML 100 ML IV SCH ×3 (05:07→22:00)
[2020-02-27] MEDS: ACCU-CHEK COMFORT CURVE STRIP VI SCH ×3 (05:08→17:36)
[2020-02-27] MEDS: InsuLIN REG 1unit/0.01ml Soln (100units/ml) SC SCH ×4 (05:08→17:39)
[2020-02-27] MEDS ORDERED: SODIUM CHLORIDE 0.9 % NEB SOLN 3ML NEB ONE (06:34)
[2020-02-27] MEDS: ALBUTEROL SULF 2.5 MG/0.5ML(0.5%) NEB SOLN NEB PRN (06:55)
[2020-02-27] MEDS ORDERED: VANCOMYCIN 500 MG in D5W 5% 100 ML IV ONE (12:30)
[2020-02-27] MEDS: CEFEPIME 2 GM in SODIUM CHL 0.9% 50 ML IV SCH (12:46)
[2020-02-27] MEDS: fentaNYL Drip 2500mCg/250mlNS 250 ML IV SCH (14:00)
[2020-02-27] MEDS: BUMETANIDE INJECTION 25 MG in GIVE UN-DILUTED 0 ML IV SCH (17:19)
[2020-02-27] MEDS: MIDAZOLAM DRIP 50 mg/50mL 50 ML IV SCH (19:45)
[2020-02-27] MEDS ORDERED: TPN*HIGH CONC* PER PHARMACY IV NR ×8 (20:00)
[2020-02-27] MEDS ORDERED: FLUCONAZOLE 200MG/100ML 100 ML IV SCH (21:00)
[2020-02-27] MEDS: SODIUM CHLOR 0.9% PF (SALINE LOCK) 10ML VIAL/SYR IV SCH (21:58)
[2020-02-28] VITALS (80 sets, daily range): BP systolic 134–162; BP diastolic 58–83
[2020-02-28] MEDS: PANTOPRAZOLE 40mg/50ML NS AE 50 ML IV SCH ×4 (02:56→17:28)
[2020-02-28] MEDS: PHENYLEPHRINE IV 250 ML IV SCH ×2 (03:25→12:50)
[2020-02-28] MEDS: NOREPINEPHRINE 8 MG/250ML KIT 250 ML IV SCH ×2 (03:25→17:35)
[2020-02-28 04:51] LABS: Albumin 1.6 g/dL (3.4-5.0); Calcium 8.6 mg/dL (8.5-10.1); Magnesium 2.6 mg/dL (1.6-2.6); Potassium 3.9 mmol/L (3.5-5.1)
[2020-02-28 04:55] LABS: Phosphorus 6.1 mg/dL (2.5-4.90); Total Protein 7.2 g/dL (6.4-8.2)
[2020-02-28 05:25] LABS: Hemoglobin 7.1 g/dL (12.2-16.2)
[2020-02-28 05:29] LABS: Hematocrit 21.6 % (36.0-46.0); Mean Corpuscular Hemoglobin 30.9 pg (28.0-32.0); Mean Corpuscular Hgb Conc. 32.8 g/dL (32.0-36.0); Mean Corpuscular Volume 94.1 fL (80.0-100.0); Platelet Count (auto) 362 10^3/uL (140-450); Red Blood Cells 2.29 10^6/uL (4.0-5.20); White Blood Cell 26.6 10^3/uL (4.4-10.8)
[2020-02-28 05:55] LABS: Basophils % (manual) 0 (0.0-2.0); Blast Cells 0; Eosinophils % (manual) 0 (0-7); Promyelocytes % 0; Reactive Lymphocytes 0
[2020-02-28] MEDS: ACCU-CHEK COMFORT CURVE STRIP VI SCH ×4 (06:00→17:25)
[2020-02-28] MEDS: InsuLIN REG 1unit/0.01ml Soln (100units/ml) SC SCH ×4 (06:00→17:27)
[2020-02-28] MEDS: metroNIDAZOLE 500MG/100ML 100 ML IV SCH ×2 (06:00→13:39)
[2020-02-28 07:03] LABS: Band Neutrophils % (manual) 1; Lymphocytes % (manual) 3 (10.0-50.0); Metamyelocytes % 2; Monocytes % (manual) 8 (0-12); Myelocytes % 5
[2020-02-28] MEDS ORDERED: SODIUM BICARBONATE 8.4 % INJ 50ML VIAL IV ONE ×2 (09:00→12:30)
[2020-02-28] MEDS: SODIUM CHLOR 0.9% PF (SALINE LOCK) 10ML VIAL/SYR IV SCH (09:32)
[2020-02-28] MEDS ORDERED: HEPARIN 1,000 UNITS/ml 1ML VIAL ONE (10:00)
[2020-02-28] MEDS: BUMETANIDE INJECTION 25 MG in GIVE UN-DILUTED 0 ML IV SCH (10:15)
[2020-02-28] MEDS: CEFEPIME 2 GM in SODIUM CHL 0.9% 50 ML IV SCH (11:28)
[2020-02-28] MEDS ORDERED: SODIUM CHL 0.9% 1000 ML BAG XX ONE (11:30)
[2020-02-28] MEDS: fentaNYL Drip 2500mCg/250mlNS 250 ML IV SCH (14:00)
[2020-02-28] MEDS ORDERED: BUMETANIDE INJECTION 12.5 MG in GIVE UN-DILUTED 0 ML IV SCH (15:15)
[2020-02-28] MEDS ORDERED: TPN*HIGH CONC* PER PHARMACY IV NR ×8 (20:00)
[2020-02-28] MEDS ORDERED: EPOETIN ALFA 10,000 UNIT/1 ML VIAL SC ONE (21:00)
== END 2020-02-28 18:35 | disposition short-term general hospital (02) | DRG 720 ==
LOC: ER 10:22 → EDBD 10:22 → ICU WEST 10:23
PROVIDERS: ADMIT Surgery; ATTEND Hospitalist
PROC: 0BH17EZ Insertion of Endotracheal Airway into Trachea, Via Natural or Artificial Opening (ICD-10-PCS; 2020-02-16)
PROC: 5A12012 Performance of Cardiac Output, Single, Manual (ICD-10-PCS; 2020-02-16)
PROC: 30233K1 Transfusion of Nonautologous Frozen Plasma into Peripheral Vein, Percutaneous Approach (ICD-10-PCS; 2020-02-16)
PROC: 5A1955Z Respiratory Ventilation, Greater than 96 Consecutive Hours (ICD-10-PCS; principal; 2020-02-16 18:33)
PROC: 02H633Z Insertion of Infusion Device into Right Atrium, Percutaneous Approach (ICD-10-PCS; 2020-02-17)
PROC: B548ZZA Ultrasonography of Superior Vena Cava, Guidance (ICD-10-PCS; 2020-02-17)
PROC: 02HV33Z Insertion of Infusion Device into Superior Vena Cava, Percutaneous Approach (ICD-10-PCS; 2020-02-18)
DX: A41.9 Sepsis, unspecified organism (principal); N17.0 Acute kidney failure with tubular necrosis; J96.01 Acute respiratory failure with hypoxia; I21.3 ST elevation (STEMI) myocardial infarction of unspecified site; E83.39 Other disorders of phosphorus metabolism; E87.6 Hypokalemia; I49.01 Ventricular fibrillation; K63.1 Perforation of intestine (nontraumatic); E16.2 Hypoglycemia, unspecified; R65.21 Severe sepsis with septic shock; J98.11 Atelectasis; I46.9 Cardiac arrest, cause unspecified; E87.5 Hyperkalemia; E66.01 Morbid (severe) obesity due to excess calories; E83.42 Hypomagnesemia; E87.0 Hyperosmolality and hypernatremia; K76.7 Hepatorenal syndrome; N18.9 Chronic kidney disease, unspecified; M32.9 Systemic lupus erythematosus, unspecified; R31.9 Hematuria, unspecified; D64.9 Anemia, unspecified; J96.02 Acute respiratory failure with hypercapnia; K21.9 Gastro-esophageal reflux disease without esophagitis; G89.29 Other chronic pain; Z20.828 Contact with and (suspected) exposure to other viral communicable diseases; G93.1 Anoxic brain damage, not elsewhere classified; K65.9 Peritonitis, unspecified; D69.6 Thrombocytopenia, unspecified; K72.90 Hepatic failure, unspecified without coma; I51.7 Cardiomegaly; T68.XXXA Hypothermia, initial encounter; Z83.3 Family history of diabetes mellitus; Z87.11 Personal history of peptic ulcer disease; Z68.42 Body mass index [BMI] 45.0-49.9, adult
CPT/HCPCS: 31500; 36415; 36569; 36600; 70450; 71045; 71250; 72125; 74176; 80048; 80053; 80074; 80202; 80307; 81001; 82040; 82150; 82247; 82271; 82570; 82805; 82947; 82962; 83516; 83520; 83605; 83735; 83880; 84100; 84156; 84300; 84478; 84484; 85007; 85025; 85027; 85610; 85652; 85730; 86038; 86141; 86160; 86225; 86235; 86256; 86850; 86900; 86901; 86920; 87040; 87070; 87077; 87081; 87086; 87186; 87205; 93005; 93306; 94002; 94003; 94640; 95819; 96361; 96365; 96366; 96367; 96368; 96375; 96376; 99291; 99292; A4618; G0378; J0610; J0696; J0885; J1450; J1815; J2250; J2405; J2543; J3480; J3490; J7042; J7060; J7131; P9047